=== PATIENT | female | born 1980 | race Caucasian/White ===

== ENCOUNTER 2021-03-10 15:55 | Emergency (ER) | payer MEDICAID ==
[~2021-03-10] VITALS: Ht 152.4 cm; Wt 79.0 kg
[2021-03-10] MEDS ORDERED: SODIUM CHLORIDE 0.9% 1,000 ML IV ONE (16:30)
[2021-03-10] MEDS ORDERED: ACETAMINOPHEN 325MG TABLET PO ONE (16:30)
[2021-03-10] MEDS ORDERED: METOCLOPRAMIDE HCL 5MG TABLET PO ONE (16:30)
[2021-03-10 16:39] LABS: BASOPHILS % 0.5 % (0.0-2.0); EOSINOPHILS % 1.3 % (0.0-5.0); HEMATOCRIT. 27.7 % (36.0-48.0); HEMOGLOBIN. 8.5 g/dL (12.0-16.0); LYMPHOCYTES % 12.9 % (20.0-50.0); MEAN CORPUSCULAR HEMOGLOBIN 19.6 pg (28.0-32.0); MEAN CORPUSCULAR VOLUME 63.5 fL (81.0-99.0); MEAN PLATELET VOLUME 8.8 fl (7.4-10.4); MONOCYTES % 5.2 % (2.0-8.0); NEUTROPHILS % 80.1 % (40.0-76.0); PLATELET 258 x1000/uL (130-400); RED BLOOD CELL COUNT 4.36 mill/uL (4.2-5.4); RED CELL DISTRIBUTION WIDTH 18.5 % (11.6-14.6)
[2021-03-10 16:46] LABS: CHLORIDE 109 mEq/L (98-107)
[2021-03-10 16:57] LABS: B-HCG QUANTITATIVE < 1 mIU/mL (<3)
[2021-03-10 17:29] LABS: PLATELET ESTIMATE NORMAL
[2021-03-10] MEDS ORDERED: ASPI-1497 MT (21:49)
[2021-03-10 22:29] VITALS: BP 130/80
== END 2021-03-10 22:31 | disposition home or self-care (01) ==
LOC: ER 16:08
DX: R07.2 Precordial pain (principal); R00.2 Palpitations; R51.9 Headache, unspecified; I10 Essential (primary) hypertension; D64.9 Anemia, unspecified; D25.9 Leiomyoma of uterus, unspecified; E03.9 Hypothyroidism, unspecified
CPT/HCPCS: 36415; 71045; 76830; 76856; 80053; 81025; 84484; 84702; 85025; 85379; 86850; 86900; 86901; 93005; 96360; 99285; J7030; J8597; Z7610